=== PATIENT | female | born 1970 | race Caucasian/White ===

== ENCOUNTER 2018-04-17 09:37 | Emergency (ER) | payer BC ==
--- NOTE | 2018-04-17 10:00 | UC ---
Back Pain HPI - HPI Summary HPI Summary: Lower back spasming and back pain for over a year. Has been worsening over the past week. No other assoc. symptoms. back Spasming can sometimes cause difficulty breathing. She cannot recall an incident that causes pain. does not interfere w/ walking. just moved back to the area. She also wants to check if she has HIV for scrning. denies exposure or symptoms. HTN: noted during visit. she states she has a hx of this and not on meds. denies cp, dizziness, sob. - History of Current Complaint Chief Complaint: UCBackPain Stated Complaint: BACK PAIN Time Seen by Provider: 04/17/18 09:49 Hx Obtained From: Patient Hx Last Menstrual Period: 03/15/18 ?: No Onset/Duration: Gradual Onset, Lasting Weeks Timing: Lasting Weeks Severity Initially: Mild Severity Currently: Moderate Pain Intensity: 10 Pain Scale Used: 0-10 Numeric Character: Sharp, Aching Aggravating Factor(s): Movement, Lifting Alleviating Factor(s): Rest Associated Signs And Symptoms: Positive: Negative - Risk Factors AAA Risk Factors: Hypertension TAD Risk Factors: Hypertension - Allergies/Home Medications Allergies/Adverse Reactions: Allergies Allergy/AdvReac Type Severity Reaction Status Date / Time codeine Allergy fever high Verified 04/17/18 09:48 bp morphine Allergy fever high Verified 04/17/18 09:49 bp Home Medications: Home Medications Omeprazole CAP* [Prilosec CAP* 20 MG] 20 mg PO DAILY 04/17/18 [History Confirmed 04/17/18] PMH/Surg Hx/FS Hx/Imm Hx Cardiovascular History: Hypertension, Other - RBBB - Surgical History Surgical History: Yes Surgery Procedure, Year, and Place: appy,sree,leg plated - Social History Alcohol Use: Occasionally Substance Use Type: None Smoking Status (MU): Never Smoked Tobacco Review of Systems All Other Systems Reviewed And Are Negative: Yes Constitutional: Positive: Negative Skin: Positive: Negative. Negative: Bruising Respiratory: Positive: Negative Cardiovascular: Positive: Negative Gastrointestinal: Positive: Negative Neurovascular: Positive: Negative Musculoskeletal: Positive: Other: - +lower back pain Neurological: Positive: Negative Physical Exam Triage Information Reviewed: Yes Appearance: Well-Appearing Vital Signs: Initial Vital Signs Temp 97.6 F 04/17/18 09:43 Pulse 68 04/17/18 09:43 Resp 16 04/17/18 09:43 BP 166/100 04/17/18 09:43 Pulse Ox 99 04/17/18 09:43 Vital Signs Reviewed: Yes Respiratory Exam: Normal Cardiovascular Exam: Normal Musculoskeletal: Positive: No Edema, Other: - neg. straight leg test bilat. Able to get on exam table w/ no issue but lays down on exam table w/ some discomfort in lower back. Some mild tenderness at lower back Neurological: Positive: Alert Diagnostics - Radiology No standard instances Radiology Interpretation Completed By: Radiologist Summary of Radiographic Findings: IMPRESSION: MILD TO MODERATE DEGENERATIVE DISC DISEASE. Back Pain Course/Dx - Course Course Of Treatment: chronic lower back pain which is worsening. I discussed her uncontrolledhtn, she is not on meds and looking for pcp. she denied cp, sob today but strongly encouraged her to see pcp to get f/u. she also requesting an hiv screening. denied any exposure. - Differential Dx/Diagnosis Differential Diagnosis/HQI/PQRI: Arthritis, Strain, Sprain Provider Diagnosis: Lumbago without sciatica, HTN (hypertension) Discharge - Sign-Out/Discharge Documenting (check all that apply): Patient Departure All imaging exams completed and their final reports reviewed: Yes - Discharge Plan Condition: Good Disposition: HOME Prescriptions: Cyclobenzaprine (NF) [Cyclobenzaprine 5 MG (NF)] 5 mg PO TID PRN #9 tab PRN Reason: Pain Patient Education Materials: HIV Transmission (ED), Chronic Hypertension (ED), Back Pain (ED) Forms: *Work Release Referrals: No Primary Care Phys,NOPCP [Primary Care Provider] - [facility] [Outside] Additional Instructions: PLEASE connect with a pcp to discuss blood pressure and your chronic back pain. Your xrays did not show any fracture but did show DEGENERATIVE DISC DISEASE which is chronic. - Billing Disposition and Condition Condition: GOOD Disposition: Home
[2018-04-17 10:12] VITALS: BP 166/100
== END 2018-04-17 11:00 | disposition home or self-care (01) ==
LOC: UCEAST 09:37
DX: M54.5 Low back pain (principal); I10 Essential (primary) hypertension; Z88.5 Allergy status to narcotic agent
CPT/HCPCS: 36415; 72100; 86703; 99202; G0463

== ENCOUNTER 2018-05-07 09:13 | Emergency (ER) | payer BC ==
[2018-05-07 09:46] VITALS: BP 151/93
--- NOTE | 2018-05-07 10:41 | UC ---
FLU HPI - HPI Summary HPI Summary: 2-3 days of fever up to 102, cough, congestion, fatigue, headache and body aches. Has had some nausea and loose stools. Roommate diagnosed 2 days ago with flu. - History of Current Complaint Chief Complaint: UCGeneralIllness Stated Complaint: FEVER RESP ISSUE Time Seen by Provider: 05/07/18 10:21 Hx Obtained From: Patient Hx Last Menstrual Period: 03/2018 Onset/Duration: Gradual Onset, Lasting Days, Still Present Severity Currently: Moderate Severity Initially: Moderate Pain Intensity: 5 Pain Scale Used: 0-10 Numeric Associated Signs & Symptoms: Positive: Fever, Myalgia, Cough, Sore Throat, Nasal Congestion, Headache, Diarrhea - Allergy/Home Medications Allergies/Adverse Reactions: Allergies Allergy/AdvReac Type Severity Reaction Status Date / Time codeine Allergy fever high Verified 05/07/18 09:39 bp morphine Allergy fever high Verified 05/07/18 09:39 bp PMH/Surg Hx/FS Hx/Imm Hx Previously Healthy: Yes - Surgical History Surgical History: Yes Surgery Procedure, Year, and Place: appy,sree,leg plated - Family History Known Family History: Positive: Non-Contributory - Social History Alcohol Use: Occasionally Substance Use Type: None Smoking Status (MU): Never Smoked Tobacco Review of Systems All Other Systems Reviewed And Are Negative: Yes Constitutional: Positive: Fever, Chills, Fatigue ENT: Positive: Sore Throat, Nasal Discharge Respiratory: Positive: Cough Cardiovascular: Positive: Negative Gastrointestinal: Positive: Diarrhea, Nausea Genitourinary: Positive: Negative Musculoskeletal: Positive: Arthralgia, Myalgia Neurological: Positive: Headache Physical Exam Triage Information Reviewed: Yes Appearance: No Pain Distress, Well-Nourished, Ill-Appearing - MILD Vital Signs: Initial Vital Signs Temp 95.9 F 05/07/18 09:41 Pulse 61 05/07/18 09:41 Resp 16 05/07/18 09:41 BP 151/93 05/07/18 09:41 Pulse Ox 100 05/07/18 09:41 Laboratory Tests 05/07/18 09:56 Influenza A (Rapid) Negative Influenza B (Rapid) Negative Vital Signs Reviewed: Yes Eyes: Positive: Conjunctiva Clear ENT: Positive: Hearing grossly normal, Pharynx normal, Nasal congestion, TMs normal, Hoarse voice Neck: Positive: Supple, Nontender, No Lymphadenopathy Respiratory Exam: Normal Cardiovascular Exam: Normal Abdomen Description: Positive: Soft Musculoskeletal: Positive: No Edema Neurological: Positive: Alert Psychological: Positive: Age Appropriate Behavior Skin: Negative: Rashes Flu Course/Dx - Course Course Of Treatment: PT OFFERED TX BASED ON HISTORY AND EXPOSURE BUT PT REQUESTED SWAB FOR DOCUMENTATION PURPOSES. DESPITE A NEGATIVE FLU SWAB WILL TREAT WITH TAMIFLU GIVEN PATIENT'S CLINICAL PRESENTATION ALONG WITH HER CLOSE HOUSEHOLD CONTACT WITH POSITIVE FLU. ADVISED TO STAY WELL RESTED, HYDRATED AND TO TAKE IBUPROFEN NEEDED FOR DISCOMFORT AND FEVER. - Differential Dx/Diagnosis Provider Diagnosis: Acute viral syndrome Discharge - Sign-Out/Discharge Documenting (check all that apply): Patient Departure All imaging exams completed and their final reports reviewed: No Studies - Discharge Plan Condition: Stable Disposition: HOME Prescriptions: Oseltamivir CAP* [Tamiflu CAP*] 75 mg PO BID #10 cap Patient Education Materials: Viral Syndrome (ED) Forms: *Work Release Referrals: [facility] [Outside] - If Needed Additional Instructions: FLU SWAB TODAY NEGATIVE BUT GIVEN YOUR CLOSE HOUSEHOLD EXPOSURE TO SOMEONE WITH INFLUENZA WILL TREAT WITH TAMIFLU TWICE DAILY FOR 5 DAYS. STAY WELL HYDRATED. IBUPROFEN NEEDED FOR FEVER AND DISCOMFORT. USE OTC AFRIN FOR NASAL CONGESTION. 2 SPRAYS IN EACH NOSTRIL TWICE DAILY NEEDED. DO NOT USE FOR MORE THAN 3-4 DAYS IN A ROW TO PREVENT DEVELOPING REBOUND CONGESTION. - Billing Disposition and Condition Condition: STABLE Disposition: Home
== END 2018-05-07 10:42 | disposition home or self-care (01) ==
LOC: UCEAST 09:13
DX: B34.9 Viral infection, unspecified (principal); Z88.5 Allergy status to narcotic agent
CPT/HCPCS: 99212; G0463

== ENCOUNTER 2018-05-12 12:58 | Emergency (ER) | payer BC ==
--- NOTE | 2018-05-12 13:20 | UC ---
Throat Pain/Nasal Eliot HPI - HPI Summary HPI Summary: 47-year-old woman comes to clinic today with a chief complaint of runny nose fevers fatigue. She's been sick for about 10 days. Initially treated with Tamiflu for influenza-like symptoms. She feels like that did help some but she still continuing to get fevers and her nose is still congested. sHe's also been getting episodes of shortness of breath. No cough or chest congestion. No edema. - History of Current Complaint Stated Complaint: FEVER Time Seen by Provider: 05/12/18 13:06 Hx Last Menstrual Period: 03/2018 - Allergies/Home Medications Allergies/Adverse Reactions: Allergies Allergy/AdvReac Type Severity Reaction Status Date / Time codeine Allergy fever high Verified 05/07/18 09:39 bp morphine Allergy fever high Verified 05/07/18 09:39 bp PMH/Surg Hx/FS Hx/Imm Hx Previously Healthy: Yes Psychological History: Anxiety - Surgical History Surgical History: Yes Surgery Procedure, Year, and Place: appy,sree,leg plated - Family History Known Family History: Positive: Non-Contributory - Social History Alcohol Use: Occasionally Substance Use Type: None Smoking Status (MU): Never Smoked Tobacco Review of Systems All Other Systems Reviewed And Are Negative: Yes Constitutional: Positive: Fever, Chills, Fatigue Skin: Positive: Negative Eyes: Positive: Negative ENT: Positive: Sore Throat, Nasal Discharge, Sinus Congestion Respiratory: Positive: Shortness Of Breath, Other - no wheezing. Negative: Cough Cardiovascular: Positive: Chest Pain - with the sob Gastrointestinal: Positive: Negative Motor: Positive: Negative Neurovascular: Positive: Negative Musculoskeletal: Positive: Negative Neurological: Positive: Negative Psychological: Positive: Anxious Is Patient Immunocompromised?: No Physical Exam Triage Information Reviewed: Yes Appearance: No Pain Distress, Well-Nourished, Ill-Appearing - mild Vital Signs Reviewed: Yes Eye Exam: Normal Eyes: Positive: Conjunctiva Clear ENT: Positive: Pharyngeal erythema, Nasal congestion, Nasal drainage, TMs normal Neck exam: Normal Neck: Positive: Supple Respiratory Exam: Normal Respiratory: Positive: Lungs clear, Normal breath sounds, No respiratory distress Cardiovascular: Positive: RRR Musculoskeletal Exam: Normal Musculoskeletal: Positive: Strength Intact, ROM Intact, No Edema, Other: - no calf tenderness Neurological Exam: Normal Neurological: Positive: Alert, Muscle Tone Normal Psychological Exam: Normal Psychological: Positive: Normal Response To Family Skin Exam: Normal Throat Pain/Nasal Course/Dx - Course Course Of Treatment: Patient's had symptoms for 10 days and the symptoms of fever are still present. She continues to have sinus congestion. We discussed viral versus bacterial infections and the role of antibiotics. With the patient 's symptoms going on for 10 days and not getting better we'll treat with an antibiotic. Patient also reports an episode this morning when she woke up she felt paralyzed and she could not move. She also reported chest pain at that time. Lasted about 15 minutes and then she fell asleep again. Woke up this morning she did not have symptoms. We discussed going to the emergency department for further evaluation of those symptoms to include chest pain and also getting an EKG. Patient declined going to the emergency department and declined an EKG she said she's had these symptoms before and they are a panic attack. I let the patient know that if her symptoms continue or they worsen or she has any more chest pain she should go to the emergency department for further evaluation and care. - Differential Dx/Diagnosis Provider Diagnosis: Upper respiratory tract infection Discharge - Sign-Out/Discharge Documenting (check all that apply): Patient Departure All imaging exams completed and their final reports reviewed: No Studies - Discharge Plan Condition: Stable Disposition: HOME Prescriptions: Amoxicillin/Clavulanate TAB* [Augmentin TAB 875*] 875 mg PO BID #20 tab Patient Education Materials: Upper Respiratory Infection (ED) Forms: *Work Release Referrals: [facility] [place]] Additional Instructions: FOLLOW UP WITH YOUR DOCTOR IF NOT COMPLETELY IMPROVED. GET RECHECKED FOR ANY WORSENING OF YOUR CONDITION OR QUESTIONS OR CONCERNS. - Billing Disposition and Condition Condition: STABLE Disposition: Home
[2018-05-12 13:41] VITALS: BP 158/96
== END 2018-05-12 13:30 | disposition home or self-care (01) ==
LOC: UCEAST 12:58
DX: J06.9 Acute upper respiratory infection, unspecified (principal); R07.9 Chest pain, unspecified; Z88.5 Allergy status to narcotic agent
CPT/HCPCS: 99202; G0463

== ENCOUNTER 2018-10-05 07:16 | Emergency (ER) | payer SELFPAY ==
[2018-10-05 07:34] VITALS: BP 132/89
--- NOTE | 2018-10-05 08:20 | UC ---
Hand/Wrist HPI - HPI Summary HPI Summary: 48 yo female with hx bilate finger tip numbness and pain of both hands (2/3/4 digits) which has been present x weeks also with shooting pains down right arm no neck pain has had daily lower and mid back pain x mos recent dx of DDD no wt loss no hx CA no bowel or bladder dysfunction - History Of Current Complaint Chief Complaint: UCBackPain Stated Complaint: PAIN IN BOTH HANDS AND RIGHT ARM (NO INJURY) Time Seen by Provider: 10/05/18 07:39 Hx Obtained From: Patient Hx Last Menstrual Period: 04/20/2018 Onset/Duration: Sudden Onset, Lasting Weeks Severity Initially: Mild Severity Currently: Severe Pain Intensity: 10 - back pain Pain Scale Used: 0-10 Numeric Character Of Pain: Dull, Aching Aggravating Factor(s): Movement Alleviating Factor(s): Rest Associated Signs And Symptoms: Positive: Numbness/Tingling Related History: Dominant Hand Right Hands: 1 - numb and tingly - Allergies/Home Medications Allergies/Adverse Reactions: Allergies Allergy/AdvReac Type Severity Reaction Status Date / Time codeine Allergy fever high Verified 10/05/18 07:34 bp morphine Allergy fever high Verified 10/05/18 07:34 bp Home Medications: Home Medications Acetaminophen [Tylenol] 2 tab PO ONCE 10/05/18 [History Confirmed 10/05/18] Loratadine 1 tab PO DAILY 10/05/18 [History Confirmed 10/05/18] Melatonin 1 tab PO BEDTIME 10/05/18 [History Confirmed 10/05/18] Multivitamin [Multivitamins] 1 tab PO DAILY 10/05/18 [History Confirmed 10/05/18 ] Omeprazole 1 tab PO DAILY 10/05/18 [History Confirmed 10/05/18] PMH/Surg Hx/FS Hx/Imm Hx Previously Healthy: Yes - Surgical History Surgical History: Yes Surgery Procedure, Year, and Place: appy,sree,leg plated - Family History Known Family History: Positive: Cardiac Disease, Hypertension, Other - CA, Non- Contributory - Social History Alcohol Use: Weekly Substance Use Type: None Smoking Status (MU): Never Smoked Tobacco Review of Systems All Other Systems Reviewed And Are Negative: Yes Constitutional: Positive: Negative Skin: Positive: Negative Eyes: Positive: Negative ENT: Positive: Negative Respiratory: Positive: Negative Cardiovascular: Positive: Negative Gastrointestinal: Positive: Negative Genitourinary: Positive: Negative Motor: Positive: Negative Neurovascular: Positive: Negative Musculoskeletal: Positive: Myalgia - back Neurological: Positive: Numbness - finger tips as noted Psychological: Positive: Anxious Physical Exam Triage Information Reviewed: Yes Appearance: Well-Appearing, No Pain Distress, Well-Nourished Vital Signs: Initial Vital Signs Temp 98.1 F 10/05/18 07:26 Pulse 67 10/05/18 07:26 Resp 18 10/05/18 07:26 BP 132/89 10/05/18 07:26 Pulse Ox 99 10/05/18 07:26 Vital Signs Reviewed: Yes Eyes: Positive: Conjunctiva Clear ENT: Negative: Nasal congestion, Nasal drainage, Hoarse voice Neck: Positive: Supple, Nontender, No Lymphadenopathy Respiratory: Positive: Lungs clear, Normal breath sounds, No respiratory distress Cardiovascular: Positive: RRR, No Murmur Musculoskeletal: Positive: ROM Intact, Other: - BILAT POSITIVE PHALENS AND TINELS Neurological Exam: Normal Neurological: Positive: Alert Psychological Exam: Normal Skin Exam: Normal Diagnostics - Radiology No standard instances Radiology Interpretation Completed By: Radiologist Summary of Radiographic Findings: mild DDD of CS Hand/Wrist Course/Dx - Differential Dx/Diagnosis Provider Diagnosis: Bilateral carpal tunnel syndrome, Elevated BP without diagnosis of hypertension , Disc disease, degenerative, cervical Discharge - Sign-Out/Discharge Documenting (check all that apply): Patient Departure All imaging exams completed and their final reports reviewed: Yes - Discharge Plan Condition: Stable Disposition: HOME Patient Education Materials: Paresthesia (ED), Back Pain (ED) Forms: *Work Release Referrals: [facility] [Outside] - If Needed (call for assistance to find a local MD) Juan Miguel Holliday MD [Medical Doctor] - As Soon As Possible (for evaluation of possible CARPAL TUNNEL SYNDROME) Additional Instructions: I suggest you take aleve 1-2 twice twice daily with food for pain you need to find a local doctor to follow you for your back pain and general health care maintenance as well as follow up of blood pressure blood work is pending see Dr Holliday re possible Carpal Tunnel Syndrome wear splint on wrist wrist to see if it helps with your shooting pains - Billing Disposition and Condition Condition: STABLE Disposition: Home
[2018-10-05 14:13] LABS: ABS Basophils 0.1 10^3/ul (0-0.2); ABS Eosinophils 0.3 10^3/ul (0-0.6); ABS Lymphocytes 2.6 10^3/ul (1.0-4.8); ABS Monocytes 0.6 10^3/ul (0-0.8); ABS Neutrophils 3.5 10^3/ul (1.5-7.7); Eosinophil % 4.9 %; Hematocrit 39 % (35-47); Lymphocyte % 36.6 %; Mean Corpuscular HGB Conc 33 g/dL (31-36); Mean Corpuscular Hemoglobin 29 pg (27-31); Mean Corpuscular Volume 86 fL (80-97); Mean Platelet Volume 8.1 fL (7.4-10.4); Nucleated Red Blood Cells % 0.2; Platelet Count 337 10^3/uL (150-450); Red Blood Count 4.57 10^6 /uL (3.70-4.87); Red Cell Distribution Width 14 % (10.5-15)
[2018-10-05 14:24] LABS: Calcium 9.3 mg/dL (8.6-10.3); Potassium 3.8 mmol/L (3.5-5.0)
[2018-10-05 14:29] LABS: BUN/Creatinine Ratio 18.1 (8-20); EGFR African American 104.2 (>60); EGFR Non-African American 86.1 (>60)
[2018-10-05 14:39] LABS: TSH (Thyroid Stimulating Horm) 2.82 mcIU/mL (0.34-5.60)
[2018-10-05 17:49] LABS: Erythrocyte Sed Rate 29 mm/Hr (0-19)
--- NOTE | 2018-10-06 07:16 | UC ---
- Progress Note Progress Note: CBC with diff - normal cmp - normal tsh - normal sed rate - slight elevated 29 Pt recommend f/u with Dr. Holliday no change in tx related to labs milena 10/06/18 Course/Dx - Diagnoses Provider Diagnoses: Bilateral carpal tunnel syndrome, Elevated BP without diagnosis of hypertension , Disc disease, degenerative, cervical Discharge - Sign-Out/Discharge Documenting (check all that apply): Post-Discharge Follow Up All imaging exams completed and their final reports reviewed: Yes - Discharge Plan Condition: Stable Disposition: HOME Prescriptions: Cyclobenzaprine (NF) [Cyclobenzaprine 5 MG (NF)] 5 mg PO TID PRN #21 tab PRN Reason: Spasms - Back Patient Education Materials: Paresthesia (ED), Back Pain (ED) Forms: *Work Release Referrals: [facility] [place] [facility] [Outside] - If Needed (call for assistance to find a local MD) Juan Miguel Holliday MD [Medical Doctor] - As Soon As Possible (for evaluation of possible CARPAL TUNNEL SYNDROME) Additional Instructions: I suggest you take aleve 1-2 twice twice daily with food for pain you need to find a local doctor to follow you for your back pain and general health care maintenance as well as follow up of blood pressure blood work is pending see Dr Holliday re possible Carpal Tunnel Syndrome wear splint on wrist wrist to see if it helps with your shooting pains - Billing Disposition and Condition Condition: STABLE Disposition: Home
--- NOTE | 2018-10-09 13:03 | UC ---
- Progress Note Progress Note: Additional lab report of a + GEORGES, with a mild increase in sed rate previously reported. She might need to see a media professional for evaluation. I think she was referred to Dr. Holliday--ok to follow up with him or her PMD for referral. Course/Dx - Diagnoses Provider Diagnoses: Bilateral carpal tunnel syndrome, Elevated BP without diagnosis of hypertension , Disc disease, degenerative, cervical Discharge - Sign-Out/Discharge Documenting (check all that apply): Patient Departure All imaging exams completed and their final reports reviewed: Yes - Discharge Plan Condition: Stable Disposition: HOME Prescriptions: Cyclobenzaprine (NF) [Cyclobenzaprine 5 MG (NF)] 5 mg PO TID PRN #21 tab PRN Reason: Spasms - Back Patient Education Materials: Paresthesia (ED), Back Pain (ED) Forms: *Work Release Referrals: [facility] [place] [facility] [Outside] - If Needed (call for assistance to find a local MD) Juan Miguel Holliday MD [Medical Doctor] - As Soon As Possible (for evaluation of possible CARPAL TUNNEL SYNDROME) Additional Instructions: I suggest you take aleve 1-2 twice twice daily with food for pain you need to find a local doctor to follow you for your back pain and general health care maintenance as well as follow up of blood pressure blood work is pending see Dr Holliday re possible Carpal Tunnel Syndrome wear splint on wrist wrist to see if it helps with your shooting pains - Billing Disposition and Condition Condition: STABLE Disposition: Home
== END 2018-10-05 09:25 | disposition home or self-care (01) ==
LOC: UCCORT 07:16
DX: G56.03 Carpal tunnel syndrome, bilateral upper limbs (principal); R03.0 Elevated blood-pressure reading, without diagnosis of hypertension; M50.321 Other cervical disc degeneration at C4-C5 level
CPT/HCPCS: 36415; 72050; 80048; 84443; 85025; 85652; 86038; 99213; G0463

== ENCOUNTER 2019-03-26 07:42 | Emergency (ER) | payer OTHER ==
[2019-03-26 08:19] VITALS: BP 175/97
--- NOTE | 2019-03-26 08:25 | UC ---
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 Has some right hand paresthesias. She has used ibuprofen for control of pain with some relief. Was seen for sx of carpal tunnel in October 2018, but this resolved completely. - History of Current Complaint Chief Complaint: UCUpperExtremity Stated Complaint: WC-PAIN IN RT ARM WORSENING Time Seen by Provider: 03/26/19 08:23 Hx Obtained From: Patient Hx Last Menstrual Period: 04/20/2018 Onset/Duration: Gradual Onset, Lasting Days Severity Initially: Moderate Severity Currently: Severe Pain Intensity: 10 Location Of Pain: Is Discrete @ - right elbow and forearm Character: Aching, Throbbing Aggravating Factor(s): Movement Alleviating Factor(s): OTC Meds Associated Signs And Symptoms: Positive: Swelling - around the lateral epicondyle. Related History: Dominant Hand Right - Risk Factors Non-Orthopedic Risk Factor: Negative DVT Risk Factors: Negative Septic Arthritis Risk Factor: Negative - Allergies/Home Medications Allergies/Adverse Reactions: Allergies Allergy/AdvReac Type Severity Reaction Status Date / Time codeine Allergy fever high Verified 03/26/19 08:19 bp morphine Allergy fever high Verified 03/26/19 08:19 bp Home Medications: Home Medications Ascorbic Acid [Vitamin C] 500 mg PO DAILY 03/26/19 [History Confirmed 03/26/19] Ashwagandha PO DAILY 03/26/19 [History] Biotin [Biotin Gummies] 1,000 mcg PO TID 03/26/19 [History Confirmed 03/26/19] Calcium Carb/Vitamin D3/Vit K1 [Calcium + D] 1 chw PO BID 03/26/19 [History Confirmed 03/26/19] Cholecalciferol TAB* [Vitamin D TAB*] 4,000 units PO DAILY 03/26/19 [History Confirmed 03/26/19] Ginkgo Biloba 120 mg PO DAILY 03/26/19 [History Confirmed 03/26/19] Herbal Complex No.174 [Echinacea-Goldenseal] 450 mg PO TID 03/26/19 [History Confirmed 03/26/19] Ibuprofen TAB* [Advil TAB*] 200 mg PO Q6H PRN 03/26/19 [History Confirmed ] PMH/Surg Hx/FS Hx/Imm Hx - Additional Past Medical History Additional PMH: chronic low back pain and left knee pain Previously Healthy: Yes - Surgical History Surgical History: Yes Surgery Procedure, Year, and Place: appy,sree,leg plated - Family History Known Family History: Positive: Cardiac Disease, Hypertension, Other - [place], Non- Contributory - Social History Occupation: Employed Full-time Lives: With Family Alcohol Use: Weekly Substance Use Type: None Smoking Status (MU): Never Smoked Tobacco Review of Systems All Other Systems Reviewed And Are Negative: Yes Constitutional: Positive: Negative Skin: Positive: Negative Eyes: Positive: Negative ENT: Positive: Negative Respiratory: Positive: Negative Cardiovascular: Positive: Negative Gastrointestinal: Positive: Negative Genitourinary: Positive: Negative Motor: Positive: Decreased ROM Neurovascular: Positive: Other - paresthesias right hand Musculoskeletal: Positive: Arthralgia Neurological: Positive: Paresthesia - right hand Is Patient Immunocompromised?: No Physical Exam Triage Information Reviewed: Yes Appearance: Well-Appearing, Pain Distress - mild Vital Signs: Initial Vital Signs Temp 98.2 F 03/26/19 08:12 Pulse 63 03/26/19 08:12 Resp 18 03/26/19 08:12 BP 175/97 03/26/19 08:12 Pulse Ox 100 03/26/19 08:12 Eye Exam: Normal ENT: Positive: Normal ENT inspection Neck exam: Other - no cervical spine tenderness Neck: Positive: Supple, Nontender, No Lymphadenopathy Respiratory: Positive: Lungs clear, Normal breath sounds Cardiovascular: Positive: RRR, No Murmur Musculoskeletal Exam: Other - right elbow with mild swelling lateral epicondyle with TTP. Pain with resisted supination. Pain with resisted wrist flexion Musculoskeletal: Positive: ROM Intact - full rom at right elbow, but has pains with resisted movement and with flexion/extension., Other: - normal hand muscle bulk + Phalen's, -Tinel's at the wrist. Neurological: Positive: Alert, Muscle Tone Normal Psychological Exam: Normal Skin Exam: Normal Upper Extremity Course/Dx - Course Course Of Treatment: Discussed overuse syndrome right elbow with evidence of lateral epidondylitis and possible carpal tunnel in the right wrist. We discussed measures to decrease this including splinting for work, nsaid's and referral to PT. - Differential Dx/Diagnosis Differential Diagnosis/HQI/PQRI: Bursitis, Contusion, Strain, Other - right lateral epicondylitis. Provider Diagnosis: Right lateral epicondylitis Discharge ED - Sign-Out/Discharge Documenting (check all that apply): Patient Departure All imaging exams completed and their final reports reviewed: No Studies - Discharge Plan Condition: Stable Disposition: HOME Prescriptions: Naproxen [Naproxen 500 mg tab] 500 mg PO BID #30 tablet Patient Education Materials: Tennis Elbow (ED) Forms: *Work Release Referrals: JOSE MANUEL Hoang [Primary Care Provider] - Edy Rodriguez MD [Medical Doctor] - Additional Instructions: Please pickle processor a tennis elbow brace from a pharmacy or med supplier (you have a prescription0. 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 Ice the elbow for 10 minutes 3 or 4 times per day. Use naproxen for control of pain. STOP use of ibuprofen during this time. You have a referral to Dr. Rodriguez for advice regarding work management. - Billing Disposition and Condition Condition: STABLE Disposition: Home
== END 2019-03-26 09:01 | disposition home or self-care (01) ==
LOC: UCCORT 07:42
DX: M77.11 Lateral epicondylitis, right elbow (principal); M54.5 Low back pain; G89.29 Other chronic pain; Z88.5 Allergy status to narcotic agent
CPT/HCPCS: 99212; G0463

== ENCOUNTER 2019-05-19 13:59 | Emergency (ER) | payer SELFPAY ==
[2019-05-19 14:17] VITALS: BP 155/109
--- NOTE | 2019-05-19 16:03 | UC ---
Minor Trauma HPI - History of Current Complaint Chief Complaint: UCHeadInjury Stated Complaint: FELL HEAD/KNEE/FACE/WRIST INJURY Time Seen by Provider: 05/19/19 15:59 Hx Last Menstrual Period: 04/20/2018 Pain Intensity: 9 - Allergies/Home Medications Allergies/Adverse Reactions: Allergies Allergy/AdvReac Type Severity Reaction Status Date / Time codeine Allergy fever high Verified 05/19/19 14:17 bp morphine Allergy fever high Verified 05/19/19 14:17 bp PMH/Surg Hx/FS Hx/Imm Hx - Surgical History Surgical History: Yes Surgery Procedure, Year, and Place: Appy,Tila,leg plated - Family History Known Family History: Positive: Cardiac Disease, Hypertension, Other - [place], Non- Contributory - Social History Alcohol Use: Occasionally Substance Use Type: None Smoking Status (MU): Never Smoked Tobacco Physical Exam Vital Signs: Initial Vital Signs Temp 97.8 F 05/19/19 14:13 Pulse 76 05/19/19 14:13 Resp 16 05/19/19 14:13 BP 155/109 05/19/19 14:13 Pulse Ox 100 05/19/19 14:13 Discharge ED - Sign-Out/Discharge Documenting (check all that apply): Patient Departure All imaging exams completed and their final reports reviewed: Yes - Discharge Plan Condition: Stable Disposition: HOME Patient Education Materials: Knee Sprain (DC), Low Back Strain (ED), Muscle Spasm (ED) Forms: *Work Release Referrals: Edy Rodriguez MD [Medical Doctor] - No Primary Care Phys,NOPCP [Primary Care Provider] - Additional Instructions: - Okay to take Tylenol (acetaminophen) every 6hours as needed for pain. Okay to take Alleve 2 times a day. Take with food. -Take flexeril - muscle relaxer as prescribed - do NOT take for more than 4-[address], operate machinery or drink alcohol while flexeril- -Apply moist heat to your back for 20 minutes at a time, 4-5 times a day. Once your muscles are warm, slow gentle stretching exercises are important -Contact Dr Rodriguez, occupational medicine tomorrow, to arrange a follow-up appointment next week. -If you pain is uncontrolled, you develop pain or weakness in your legs or difficulty controlling your bowel or bladder- go to an emergency department for further treatment - Billing Disposition and Condition Condition: STABLE Disposition: Home
[2019-05-19] MEDS ORDERED: Acetaminophen TAB* 325 MG PO ONE (16:20)
--- NOTE | 2019-05-20 14:34 | UC ---
- Progress Note Progress Note: pt called - flexeril rx not written by me yesterday - sent to pharmacy today milena Course/Dx - Diagnoses Provider Diagnoses: Knee contusion, Lumbar back pain Discharge ED - Sign-Out/Discharge Documenting (check all that apply): Post-Discharge Follow Up All imaging exams completed and their final reports reviewed: Yes - Discharge Plan Condition: Stable Disposition: HOME Prescriptions: Cyclobenzaprine TAB* [Flexeril 10 MG TAB*] 5 - 10 mg PO Q8HR PRN #15 tab PRN Reason: muscle spasm Patient Education Materials: Knee Sprain (DC), Low Back Strain (ED), Muscle Spasm (ED) Forms: *Work Release Referrals: Edy Rodriguez MD [Medical Doctor] - No Primary Care Phys,NOPCP [Primary Care Provider] - Additional Instructions: - Okay to take Tylenol (acetaminophen) every 6hours as needed for pain. Okay to take Alleve 2 times a day. Take with food. -Take flexeril - muscle relaxer as prescribed - do NOT take for more than 4-[address], operate machinery or drink alcohol while flexeril- -Apply moist heat to your back for 20 minutes at a time, 4-5 times a day. Once your muscles are warm, slow gentle stretching exercises are important -Contact Dr Rodriguez, occupational medicine tomorrow, to arrange a follow-up appointment next week. -If you pain is uncontrolled, you develop pain or weakness in your legs or difficulty controlling your bowel or bladder- go to an emergency department for further treatment - Billing Disposition and Condition Condition: STABLE Disposition: Home
== END 2019-05-19 17:25 | disposition home or self-care (01) ==
LOC: UCEAST 13:59
DX: S80.00XA Contusion of unspecified knee, initial encounter (principal); M54.5 Low back pain; Z88.5 Allergy status to narcotic agent; W19.XXXA Unspecified fall, initial encounter; Y92.9 Unspecified place or not applicable
CPT/HCPCS: 72100; 99212; A9270-GY; G0463

== ENCOUNTER 2019-06-28 11:43 | Emergency (ER) | payer SELFPAY ==
[2019-06-28 13:01] VITALS: BP 152/94
--- NOTE | 2019-06-28 13:10 | UC ---
Hand/Wrist HPI - HPI Summary HPI Summary: 49-year-old female who slipped on ice last evening while walking landing on her right arm complaining of right wrist pain today, and mild right elbow pain. She did not hit her head and has no neck pain. - History Of Current Complaint Chief Complaint: UCUpperExtremity Stated Complaint: RT WRIST INJURY Time Seen by Provider: 06/28/19 13:02 Hx Obtained From: Patient Hx Last Menstrual Period: summer 2018 ?: No Onset/Duration: Sudden Onset, Still Present Severity Initially: Moderate Severity Currently: Moderate Pain Intensity: 10 Character Of Pain: Dull, Aching Aggravating Factor(s): Movement, Flexion, Extension Alleviating Factor(s): Rest Associated Signs And Symptoms: Positive: Negative. Negative: Numbness/Tingling - Allergies/Home Medications Allergies/Adverse Reactions: Allergies Allergy/AdvReac Type Severity Reaction Status Date / Time codeine Allergy fever high Verified 06/28/19 12:48 bp morphine Allergy fever high Verified 06/28/19 12:48 bp Home Medications: Home Medications Omeprazole 1 tab PO BID 10/05/18 [History Confirmed 06/28/19] Cyclobenzaprine TAB* [Flexeril 10 MG TAB*] 5 mg PO Q8HR PRN 06/28/19 [History] Naproxen [Naproxen 375 mg tab] 375 mg PO Q12H PRN 06/28/19 [History Confirmed ] Pseudoephedrine TAB* [Sudafed TAB*] 30 mg PO Q6H PRN 06/28/19 [History Confirmed 06/28/19] PMH/Surg Hx/FS Hx/Imm Hx Previously Healthy: Yes - Surgical History Surgical History: Yes Surgery Procedure, Year, and Place: Appy,Tila,leg plated - Family History Known Family History: Positive: Cardiac Disease, Hypertension, Other - [place], Non- Contributory - Social History Lives: With Family Alcohol Use: Occasionally Substance Use Type: None Smoking Status (MU): Never Smoked Tobacco Review of Systems All Other Systems Reviewed And Are Negative: Yes Musculoskeletal: Positive: Decreased ROM - Pain mostly right wrist and states she is unable to move it without pain. Is Patient Immunocompromised?: No Physical Exam Triage Information Reviewed: Yes Appearance: Well-Appearing, No Pain Distress, Well-Nourished Vital Signs: Initial Vital Signs Temp 98.2 F 02/23/20 12:51 Pulse 85 06/28/19 12:51 Resp 16 06/28/19 12:51 BP 152/94 06/28/19 12:51 Pulse Ox 97 06/28/19 12:51 Vital Signs Reviewed: Yes Musculoskeletal: Positive: Strength Intact, ROM Limited @ - Range of motion limited at the right wrist because of pain. No deformity, bruising, erythema is noted. Minimal swelling. Patient also has some tenderness on palpation of the right elbow but no deformity, bruising, swelling or erythema is noted. She has good range of motion of her arm at the elbow. Neurological Exam: Normal Psychological Exam: Normal Skin Exam: Normal Hand/Wrist Course/Dx - Course Course Of Treatment: Right wrist:FINDINGS: BONE DENSITY: Normal. BONES: There is a small bone fragment along the dorsal aspect of the proximal carpal row. JOINTS: There is no arthropathy. ALIGNMENT: There is no dislocation. SOFT TISSUES: Unremarkable. OTHER FINDINGS: None. IMPRESSION: SMALL BONE FRAGMENT ALONG THE DORSAL ASPECT OF THE PROXIMAL CARPAL ROW CONCERNING FOR TRIQUETRAL AVULSION FRACTURE. Right elbow:negative A cock-up splint was applied. The patient is to follow-up with the orthopedist in the morning. - Differential Dx/Diagnosis Provider Diagnosis: Triquetral chip fracture, Contusion of elbow, right Discharge ED - Sign-Out/Discharge Documenting (check all that apply): Patient Departure All imaging exams completed and their final reports reviewed: Yes - Discharge Plan Condition: Good Disposition: HOME Patient Education Materials: Wrist Fracture in Adults (ED) Referrals: No Primary Care Phys,NOPCP [Primary Care Provider] - Katherin Hill MD [Medical Doctor] - Additional Instructions: Elevate as much as possible and apply ice intermittently over the next 24 hours on 20 minutes off 20 minutes. Tylenol for pain. The cockup splint on until you are seen by the orthopedist. You're to call the orthopedist tomorrow. - Billing Disposition and Condition Condition: GOOD Disposition: Home
== END 2019-06-28 13:49 | disposition home or self-care (01) ==
LOC: UCCORT 11:43
DX: S50.01XA Contusion of right elbow, initial encounter (principal); S62.111A Displaced fracture of triquetrum [cuneiform] bone, right wrist, initial encounter for closed fracture; Z88.5 Allergy status to narcotic agent; W00.0XXA Fall on same level due to ice and snow, initial encounter; Y93.01 Activity, walking, marching and hiking; Y92.9 Unspecified place or not applicable
CPT/HCPCS: 99212; G0463

== ENCOUNTER 2021-03-14 08:52 | Inpatient (IN) ==
[~2021-03-14 08:52] MED LIST: Acetaminophen IV 1 GM/100ML 100 ML IV ONE; Buffered Lidocaine 1% SYRIN 1 ml INTRADERM ONE; DiMENhydriNATE IV 50 mg/ml 1 ml VIAL IV PUSH PRN; HYDROmorphone 1 MG/1 ML SYRINGE IV PRN; Lactated Ringers 1000 ml BAG 1,000 ML IV SCH; Naloxone 0.4 mg VIAL 0.4 mg/ml 1 ml VIAL IV PRN; Ondansetron 4 mg VIAL 2 MG/ML 2 ml VIAL IV PRN; ceFAZolin 2 GM in NS PREMIX 2 GM/100 ML BAG IVPB ONE; fentaNYL 100 mcg/2 ml 50 MCG/ML VIAL IV PRN
[2021-03-14] MEDS ORDERED: fentaNYL 100 mcg/2 ml 50 MCG/ML VIAL ONE (10:02)
[2021-03-14] MEDS ORDERED: Dexamethasone IV 4 MG/ML VIAL 1 ml VIAL ONE (10:02)
[2021-03-14] MEDS ORDERED: ROPIVACAINE 5 MG/ML 30 ML BTL (0.5%) ONE (10:57)
[2021-03-14] MEDS ORDERED: Midazolam 2 mg/2 ml VIAL 1 mg/ml 2 ml VIAL (2 mg) ONE (10:58)
[2021-03-14] MEDS ORDERED: Ropivacaine 5 MG/ML 20 ML VIAL 0.5% (100 MG) ONE (11:05)
[2021-03-14] MEDS ORDERED: Bupivacaine 0.5% SDV PF 30ML VIAL ONE (11:19)
[2021-03-14] MEDS ORDERED: diPHENhydraMINE IV 50 MG/ML 1 ml VIAL (BENADRYL) IV PRN (13:10)
[2021-03-14] MEDS ORDERED: Ondansetron ODT 4 mg TAB 4 MG TAB PO PRN (13:10)
[2021-03-14] MEDS ORDERED: diPHENhydraMINE 25 mg TAB PO PRN (13:10)
[2021-03-14] MEDS ORDERED: oxyCODONE/Acetamin 5/325 mg TAB PO PRN (13:10)
[2021-03-14] MEDS ORDERED: Propofol 10 MG/ML 20 ML BTL ONE (13:10)
[2021-03-14] MEDS ORDERED: Ondansetron 4 mg VIAL 2 MG/ML 2 ml VIAL IV PRN (13:10)
[2021-03-14] MEDS ORDERED: Magnesium Hydroxide LIQ 30 ML UDC PO PRN (13:10)
[2021-03-14] MEDS ORDERED: Lactulose 30 ml UDC PO PRN (13:10)
[2021-03-14] MEDS ORDERED: Acetaminophen IV 1 GM/100ML 100 ML IV ONE (14:13)
[2021-03-14] MEDS ORDERED: Famotidine IV 10 MG/ML 2 ml VIAL (20 mg) IV SLOW PU ONE (14:32)
[2021-03-14] MEDS ORDERED: hydrALAZINE 20 mg/ml 1 ML Vial IV ONE (14:33)
[2021-03-14] MEDS ORDERED: hydrALAZINE 20 mg/ml 1 ML Vial IV IV SLOW PU ONE (14:33)
[2021-03-14] MEDS ORDERED: Famotidine IV 10 MG/ML 2 ml VIAL (20 mg) ONE (14:35)
[2021-03-14] MEDS: Lactated Ringers 1000 ml BAG 1,000 ML IV SCH (16:18)
[2021-03-14] MEDS: oxyCODONE/Acetamin 5/325 mg TAB PO PRN ×2 (16:24→21:13)
[2021-03-14] MEDS: ceFAZolin 1 GM ADVAN 1 GM in NS 0.9% 50 ML 50 ML IVPB SCH (21:08)
[2021-03-14] MEDS: Magnesium Hydroxide LIQ 30 ML UDC PO SCH (21:14)
[2021-03-15] MEDS: oxyCODONE/Acetamin 5/325 mg TAB PO PRN ×2 (01:13→06:19)
[2021-03-15] MEDS: Lactated Ringers 1000 ml BAG 1,000 ML IV SCH (03:39)
[2021-03-15] MEDS: ceFAZolin 1 GM ADVAN 1 GM in NS 0.9% 50 ML 50 ML IVPB SCH ×2 (04:16→12:04)
[2021-03-15 07:05] LABS: Hematocrit 33 % (35-47); Hemoglobin 10.9 g/dL (12.0-16.0); Platelet Count 303 10^3/uL (150-450)
[2021-03-15 07:23] LABS: Calcium 9.3 mg/dL (8.6-10.3); Potassium 3.9 mmol/L (3.5-5.0)
[2021-03-15] MEDS: Magnesium Hydroxide LIQ 30 ML UDC PO SCH (08:42)
[2021-03-15] MEDS ORDERED: Vitamin THERAPEUTIC TAB PO SCH (09:00)
[2021-03-15 11:17] VITALS: BP 128/72
[2021-03-15] MEDS ORDERED: Flu vaccine *QUAD* 2021-22* 0.5 ML SYRINGE IM ONE (11:30)
== END 2021-03-15 13:50 | disposition home health service (06) | DRG 302 ==
LOC: AA 08:52 → SSU 15:59
PROVIDERS: ADMIT Orthopaedic Surgery Adult Reconstructive Orthopaedic Surgery; ATTEND Orthopaedic Surgery Adult Reconstructive Orthopaedic Surgery